=== PATIENT | female | born 1990 | race African-American/Black ===

== ENCOUNTER 2019-11-04 09:50 | Inpatient (IN) | payer OTHER ==
[2019-11-04] MEDS ORDERED: ONDANSETRON 4 MG/2 ML INJ IV PRN (11:00)
[2019-11-04] MEDS ORDERED: fentaNYL 100 MCG/2 ML INJ IV PRN (11:00)
[2019-11-04] MEDS ORDERED: MINERAL OIL 30 ML ORAL LIQD PO PRN (11:00)
[2019-11-04] MEDS ORDERED: OXYTOCIN 20 UNIT/1000ML DRIP 20 UNITS/1,000 ML BAG IV SCH (11:00)
[2019-11-04] MEDS ORDERED: TERBUTALINE 1 MG/1 ML INJ SUB-Q PRN (11:00)
[2019-11-04] MEDS ORDERED: AMPICILLIN/NS 2 GM/100 ML 2 GM/100 ML BAG IV ONE (11:00)
[2019-11-04] MEDS ORDERED: ePHEDrine SULFATE 50 MG/1 ML INJ IV PRN (11:00)
[2019-11-04] MEDS ORDERED: ACETAMINOPHEN 325 MG TAB PO PRN (11:00)
[2019-11-04] MEDS ORDERED: LIDOCAINE (2%) 20 MG/1 ML VIAL 20 ML MDV INFILTRATI ONE (11:00)
[2019-11-04] MEDS ORDERED: BUTORPHANOL 2 MG/1 ML INJ IV PRN (11:00)
--- NOTE | 2019-11-04 11:21 | History and Physical Report ---
History of Present Illness Date of examination: 11/04/19 Chief complaint: Pt denies complaints History of present illness: 29 y/o presents to [facility] L&D from [facility] for an IOL r/t to recent arrhythmia and pericardial effusion. Pt initiated her pnc at [facility] @ 9 1/7 wks and has been co managed by [facility] for diet controlled GDM. Pt's fsbs have been well controlled and wnl. Medical hx includes, a low TSH, vit D def, + GBS, and a hx of ASCUS + HPV with colpo. Pt was admitted to L&D for induction and a NICU consult was made. Past History Past Medical History: other (low TSH, Vit D def.) Past Surgical History: no surgical history MED DIR History: abnormal PAP smear Family/Genetic History: hypertension Social history: no significant social history - Obstetrical History Expected Date of Delivery: 11/18/19 Actual Gestation: 38 Week(s) 0 Day(s) : 1 Para: 0 Hx # Term Pregnancies: 0 Number of Pregnancies: 0 Spontaneous Abortions: 0 Induced : 0 Number of Living Children: 0 Medications and Allergies Allergies Allergy/AdvReac Type Severity Reaction Status Date / Time No Known Allergies Allergy Unverified 11/04/19 11:07 Review of Systems All systems: negative Breasts: normal Genitourinary: normal appearance Rectal Exam: deferred - Vital Signs Vital signs: Vital Signs Pulse BP 93 H 123/83 11/04/19 10:58 11/04/19 10:58 Temp Pulse Resp BP Pulse Ox 92 H 123/83 96 11/04/19 11:06 11/04/19 10:58 11/04/19 11:06 - Physical Exam Breasts: Positive: normal Cardiovascular: Regular rate Lungs: Positive: Clear to auscultation Abdomen: Positive: normal appearance, soft, normal bowel sounds, other (gravid) Genitourinary (Female): Positive: normal external genitalia, normal perenium Vulva: both: normal Vagina: Positive: normal moisture Uterus: Positive: normal size, normal contour, other (gravid) Adnexa: both: normal Anus/Rectum: Positive: normal perianal skin Extremities: Positive: normal - Obstetrical FHR: auscultation normal, category 1 FHR comments: FHT 142 with pos accels and no decels Uterine Contraction Monitor Mode: External Cervical Dilatation: 1 Cervical Effacement Percentage: 70 station: -3 Uterine Contraction Frequency (min): irreg Uterine Contraction Pattern: Irregular Uterine Tone Measurement Phase: Resting Uterine Contraction Intensity: Mild Results Result Diagrams: 11/04/19 13:08 11/04/19 13:08 All other labs normal. Assessment and Plan A: IUP@ 38 wks + GBS, GDM, GHTN arrhythmia and pericardial effusion P: Admit to L&D for Cervidil induction GBS prophylaxis PIH labs Consult NICU Monitor fsbs per [facility] L&D protocal Expectant mtg - Patient Problems (1) Term Current Visit: Yes Status: Acute (2) GDM (gestational diabetes mellitus) Current Visit: Yes Status: Acute (3) Gestational HTN Current Visit: Yes Status: Acute (4) GBS (group B Streptococcus carrier), +RV culture, currently Current Visit: Yes Status: Acute (5) Low TSH level Current Visit: Yes Status: Acute (6) arrhythmia affecting , antepartum Current Visit: Yes Status: Acute (7) pericardial effusion affecting management of mother Current Visit: Yes Status: Acute
[2019-11-04] MEDS ORDERED: DINOPROSTONE 10 MG VAG SUPP VG ONE (12:18)
[2019-11-04 13:29] LABS: Hematocrit 38.9 % (30.3-42.9); Hemoglobin 13.3 gm/dl (10.1-14.3); Mean Corpuscular HGB Conc 34 % (30-34); Mean Corpuscular Volume 93 fl (79-97); Platelet Count 195 K/mm3 (140-440); Red Blood Count 4.21 M/mm3 (3.65-5.03)
[2019-11-04 13:49] LABS: Alanine Aminotransferase 12 units/L (7-56); Uric Acid 3.8 mg/dL (3.5-7.6)
[2019-11-05] MEDS ORDERED: miSOPROStol 25 MCG TAB PO PRN (04:12)
[2019-11-05] MEDS: OXYTOCIN DRIP 30 UNITS/500 ML BAG IV SCH ×8 (05:59→17:16)
[2019-11-05] MEDS: LACTATED RINGERS 1,000 ML IV SCH ×3 (05:59→21:47)
[2019-11-05] MEDS ORDERED: NON-FORMULARY EACH (Prenatal One Daily Tablet 1 TAB) PO SCH (10:00)
[2019-11-05] MEDS ORDERED: PRENATAL VIT27-FE FUMARATE-FOLIC ACID VIT TAB PO SCH (10:00)
[2019-11-05 12:24] LABS: Bilirubin,Urine NEG (Negative); Blood,Urine LG (Negative); Color,Urine Straw (Yellow); Mucus,Urine FEW /HPF; Protein,Urine <15 mg/dL mg/dL (Negative); Urobilinogen,Urine < 2.0 mg/dL (<2.0)
--- NOTE | 2019-11-05 12:40 | Progress Note ---
Assessment and Plan - Patient Problems (1) Encounter for induction of labor Current Visit: Yes Status: Acute Plan to address problem: Continue Pitocin titration as ordered Pain meds as ordered Anticipate (2) arrhythmia affecting , antepartum Current Visit: Yes Status: Acute (3) pericardial effusion affecting management of mother Current Visit: Yes Status: Acute (4) GBS (group B Streptococcus carrier), +RV culture, currently Current Visit: Yes Status: Acute (5) GDM (gestational diabetes mellitus) Current Visit: Yes Status: Acute Subjective - Subjective Date of service: 11/05/19 Principal diagnosis: IOL Interval history: See admission H & P Patient reports: movement normal, contractions, no loss of fluid, no vaginal bleeding Objective - Vital Signs Vital Signs: Vital Signs - 12hr 11/05/19 11/05/19 11/05/19 01:19 02:19 04:44 Temperature Pulse Rate 75 73 94 H Respiratory Rate Blood Pressure 107/68 108/71 120/66 Blood Pressure [Right] 11/05/19 11/05/19 11/05/19 05:19 06:19 07:20 Temperature Pulse Rate 94 H 91 H 83 Respiratory Rate Blood Pressure 113/71 97/53 94/51 Blood Pressure [Right] 11/05/19 11/05/19 11/05/19 08:19 09:19 09:29 Temperature 98.0 F Pulse Rate 80 93 H 88 Respiratory 18 Rate Blood Pressure 110/75 108/64 Blood Pressure 103/63 [Right] 11/05/19 11/05/19 11/05/19 09:30 09:58 10:19 Temperature Pulse Rate 88 86 80 Respiratory Rate Blood Pressure 103/63 110/66 114/70 Blood Pressure [Right] 11/05/19 11/05/19 11/05/19 11:19 11:59 12:19 Temperature 98.1 F Pulse Rate 81 86 82 Respiratory 18 Rate Blood Pressure 115/75 103/64 88/51 Blood Pressure 103/54 [Right] - Exam Breasts: deferred Cardiovascular: Regular rate Lungs: Normal air movement Abdomen: Present: other (gravid) FHR: category 1 Uterine Contraction Monitor Mode: External Cervical Dilatation: 2 (vertex) Cervical Effacement Percentage: 70 (Pitocin @ 6mu/min) station: -2 Uterine Contraction Frequency (min): 2-5 Uterine Contraction Pattern: Irregular Uterine Tone Measurement Phase: Resting Uterine Contraction Intensity: Mild Extremities: normal - Labs Labs: Abnormal Labs 11/04/19 13:08 Creatinine 0.4 L Lactate Dehydrogenase 220 H Laboratory Results - last 24 hr 11/04/19 11/04/19 11/04/19 12:13 13:00 13:08 WBC 9.1 RBC 4.21 Hgb 13.3 Hct 38.9 MCV 93 MCH 32 MCHC 34 RDW 14.0 Plt Count 195 Creatinine Estimated GFR Uric Acid AST ALT Lactate Dehydrogenase TSH Urine Color Straw Urine Turbidity Clear Urine pH 6.0 Ur Specific [place] 1.006 Urine Protein <15 mg/dl Urine Glucose (UA) Neg Urine Ketones Neg Urine Blood Lg Urine Nitrite Neg Urine Bilirubin Neg Urine Urobilinogen < 2.0 Ur Leukocyte Esterase Tr Urine WBC (Auto) 3.0 Urine RBC (Auto) 1.0 U Epithel Cells (Auto) 1.0 Urine Mucus Few Blood Type O POSITIVE Antibody Screen Negative 11/04/19 11/04/19 13:08 13:08 WBC RBC Hgb Hct MCV MCH MCHC RDW Plt Count Creatinine 0.4 L Estimated GFR > 60 Uric Acid 3.8 AST 20 ALT 12 Lactate Dehydrogenase 220 H TSH 1.780 Urine Color Urine Turbidity Urine pH Ur Specific [place] Urine Protein Urine Glucose (UA) Urine Ketones Urine Blood Urine Nitrite Urine Bilirubin Urine Urobilinogen Ur Leukocyte Esterase Urine WBC (Auto) Urine RBC (Auto) U Epithel Cells (Auto) Urine Mucus Blood Type Antibody Screen
[2019-11-05] MEDS ORDERED: AMPICILLIN/NS 2 GM/100 ML 2 GM/100 ML BAG IV ONE (18:28)
[2019-11-05] MEDS: BUTORPHANOL 2 MG/1 ML INJ IV PRN (18:31)
--- NOTE | 2019-11-05 21:41 | Event Note ---
Date: 11/05/19 Patient is having labor induced. SVE /-3/. Having mild irregular contractions. Plan low dose Pitocin tonight for cervical ripening. No lesions noted on careful exam with bright light.
[2019-11-06] MEDS: BUTORPHANOL 2 MG/1 ML INJ IV PRN (05:06)
[2019-11-06] MEDS: LACTATED RINGERS 1,000 ML IV SCH ×2 (05:11→15:31)
--- NOTE | 2019-11-06 09:18 | Progress Note ---
Assessment and Plan A: at 38 weeks, 2 days gestation. Induction of labor for GDM, arrhythmia, and pericardial effusion. GBS positive. P: Continue IOL and GBS prophylaxis. Subjective - Subjective Date of service: 11/06/19 Principal diagnosis: IOL at 38 weeks 2 days gestation; GDM Interval history: Patient received low dose Pitocin overnight for cervical ripening. Patient reports contractions are becoming stronger and more regular. Denies LOF or VB. Patient reports: movement normal, contractions, no loss of fluid, no vaginal bleeding Objective - Vital Signs Vital Signs: Vital Signs - 12hr 11/05/19 11/05/19 11/05/19 21:19 21:45 21:50 Pulse Rate 76 90 79 Blood Pressure 104/63 O2 Sat by Pulse 99 99 Oximetry 11/05/19 11/05/19 11/05/19 21:55 22:00 22:05 Pulse Rate 82 89 83 Blood Pressure O2 Sat by Pulse 100 99 99 Oximetry 11/05/19 11/05/19 11/05/19 22:10 22:15 22:19 Pulse Rate 82 80 79 Blood Pressure 110/66 O2 Sat by Pulse 98 99 Oximetry 11/05/19 11/05/19 11/05/19 22:20 22:25 22:30 Pulse Rate 82 94 H 86 Blood Pressure O2 Sat by Pulse 99 99 100 Oximetry 11/05/19 11/05/19 11/05/19 22:35 22:40 22:45 Pulse Rate 83 82 80 Blood Pressure O2 Sat by Pulse 99 98 99 Oximetry 11/05/19 11/05/19 11/05/19 22:50 22:55 23:00 Pulse Rate 84 83 84 Blood Pressure O2 Sat by Pulse 99 98 98 Oximetry 11/05/19 11/05/19 11/05/19 23:05 23:10 23:19 Pulse Rate 87 82 94 H Blood Pressure 110/56 O2 Sat by Pulse 98 99 97 Oximetry 11/05/19 11/05/19 11/05/19 23:24 23:29 23:34 Pulse Rate 97 H 77 82 Blood Pressure O2 Sat by Pulse 99 99 98 Oximetry 11/05/19 11/05/19 11/05/19 23:39 23:44 23:49 Pulse Rate 89 81 82 Blood Pressure O2 Sat by Pulse 99 98 98 Oximetry 11/05/19 11/05/19 11/06/19 23:54 23:59 00:04 Pulse Rate 79 79 82 Blood Pressure O2 Sat by Pulse 98 98 98 Oximetry 11/06/19 11/06/19 11/06/19 00:09 00:14 00:19 Pulse Rate 74 77 79 Blood Pressure 99/54 O2 Sat by Pulse 98 98 98 Oximetry 11/06/19 11/06/19 11/06/19 00:24 00:29 00:34 Pulse Rate 79 77 80 Blood Pressure O2 Sat by Pulse 98 98 98 Oximetry 11/06/19 11/06/19 11/06/19 00:39 00:44 00:49 Pulse Rate 85 80 73 Blood Pressure O2 Sat by Pulse 99 98 98 Oximetry 11/06/19 11/06/19 11/06/19 00:54 00:59 01:04 Pulse Rate 75 85 75 Blood Pressure O2 Sat by Pulse 98 99 98 Oximetry 11/06/19 11/06/19 11/06/19 01:09 01:14 01:19 Pulse Rate 79 73 75 Blood Pressure 102/58 O2 Sat by Pulse 98 99 99 Oximetry 11/06/19 11/06/19 11/06/19 01:24 01:29 01:34 Pulse Rate 79 77 82 Blood Pressure O2 Sat by Pulse 99 98 98 Oximetry 11/06/19 11/06/19 11/06/19 01:39 01:44 01:49 Pulse Rate 98 H 77 87 Blood Pressure O2 Sat by Pulse 98 98 99 Oximetry 11/06/19 11/06/19 11/06/19 01:54 01:59 02:04 Pulse Rate 77 73 71 Blood Pressure O2 Sat by Pulse 98 98 98 Oximetry 11/06/19 11/06/19 11/06/19 02:09 02:14 02:19 Pulse Rate 74 89 73 Blood Pressure 100/50 O2 Sat by Pulse 99 100 99 Oximetry 11/06/19 11/06/19 11/06/19 02:24 02:29 02:34 Pulse Rate 79 79 75 Blood Pressure O2 Sat by Pulse 98 98 98 Oximetry 11/06/19 11/06/19 11/06/19 02:39 02:45 02:50 Pulse Rate 81 98 H 83 Blood Pressure O2 Sat by Pulse 99 99 100 Oximetry 11/06/19 11/06/19 11/06/19 02:55 03:00 03:05 Pulse Rate 90 76 86 Blood Pressure O2 Sat by Pulse 100 99 100 Oximetry 11/06/19 11/06/19 11/06/19 03:10 03:15 03:19 Pulse Rate 72 76 74 Blood Pressure 98/56 O2 Sat by Pulse 99 98 Oximetry 11/06/19 11/06/19 11/06/19 03:20 03:25 03:30 Pulse Rate 77 75 89 Blood Pressure O2 Sat by Pulse 99 98 99 Oximetry 11/06/19 11/06/19 11/06/19 03:35 03:40 03:45 Pulse Rate 77 78 78 Blood Pressure O2 Sat by Pulse 98 99 98 Oximetry 11/06/19 11/06/19 11/06/19 03:50 03:55 04:00 Pulse Rate 82 89 85 Blood Pressure O2 Sat by Pulse 98 99 99 Oximetry 11/06/19 11/06/19 11/06/19 04:05 04:10 04:15 Pulse Rate 76 90 75 Blood Pressure O2 Sat by Pulse 98 99 99 Oximetry 11/06/19 11/06/19 11/06/19 04:19 04:20 04:25 Pulse Rate 78 84 83 Blood Pressure 99/54 O2 Sat by Pulse 98 98 Oximetry 11/06/19 11/06/19 11/06/19 04:30 04:40 04:45 Pulse Rate 88 89 92 H Blood Pressure O2 Sat by Pulse 99 100 98 Oximetry 11/06/19 11/06/19 11/06/19 04:50 04:55 05:00 Pulse Rate 83 83 83 Blood Pressure O2 Sat by Pulse 98 99 98 Oximetry 11/06/19 11/06/19 11/06/19 05:05 05:10 05:15 Pulse Rate 86 80 118 H Blood Pressure O2 Sat by Pulse 99 99 100 Oximetry 11/06/19 11/06/19 11/06/19 05:19 05:20 05:25 Pulse Rate 74 84 83 Blood Pressure 123/66 O2 Sat by Pulse 98 97 Oximetry 11/06/19 11/06/19 11/06/19 05:30 05:35 05:40 Pulse Rate 83 76 81 Blood Pressure O2 Sat by Pulse 98 98 98 Oximetry 11/06/19 11/06/19 11/06/19 05:45 05:50 05:55 Pulse Rate 84 81 79 Blood Pressure O2 Sat by Pulse 98 98 97 Oximetry 11/06/19 11/06/19 11/06/19 06:00 06:05 06:10 Pulse Rate 79 78 78 Blood Pressure O2 Sat by Pulse 98 97 98 Oximetry 11/06/19 11/06/19 11/06/19 06:15 06:19 06:20 Pulse Rate 79 74 77 Blood Pressure 118/64 O2 Sat by Pulse 98 98 Oximetry 11/06/19 11/06/19 11/06/19 06:25 06:30 06:35 Pulse Rate 82 78 77 Blood Pressure O2 Sat by Pulse 99 98 98 Oximetry 11/06/19 11/06/19 11/06/19 06:40 06:45 06:50 Pulse Rate 79 78 77 Blood Pressure O2 Sat by Pulse 98 98 98 Oximetry 11/06/19 11/06/19 11/06/19 06:55 07:07 07:12 Pulse Rate 81 95 H 75 Blood Pressure O2 Sat by Pulse 98 99 98 Oximetry 11/06/19 11/06/19 11/06/19 07:17 07:19 07:22 Pulse Rate 72 72 83 Blood Pressure 105/65 O2 Sat by Pulse 98 99 Oximetry 11/06/19 11/06/19 11/06/19 07:27 07:32 07:37 Pulse Rate 77 80 76 Blood Pressure O2 Sat by Pulse 98 98 98 Oximetry 11/06/19 11/06/19 11/06/19 07:42 07:47 07:52 Pulse Rate 76 73 89 Blood Pressure O2 Sat by Pulse 99 99 99 Oximetry 11/06/19 11/06/19 11/06/19 07:57 08:02 08:07 Pulse Rate 74 83 78 Blood Pressure O2 Sat by Pulse 98 99 99 Oximetry 11/06/19 11/06/19 11/06/19 08:12 08:17 08:21 Pulse Rate 82 75 80 Blood Pressure 128/82 O2 Sat by Pulse 98 99 Oximetry 11/06/19 11/06/19 11/06/19 08:22 08:27 08:32 Pulse Rate 77 80 83 Blood Pressure O2 Sat by Pulse 98 100 99 Oximetry 11/06/19 11/06/19 11/06/19 08:37 08:42 08:47 Pulse Rate 79 94 H 77 Blood Pressure O2 Sat by Pulse 99 100 100 Oximetry 11/06/19 11/06/19 11/06/19 08:52 08:57 09:05 Pulse Rate 77 93 H 82 Blood Pressure O2 Sat by Pulse 100 100 100 Oximetry 11/06/19 09:10 Pulse Rate 83 Blood Pressure O2 Sat by Pulse 100 Oximetry - Exam Abdomen: Present: normal appearance, soft. Absent: distention, tenderness, guarding, rigidity Uterus: Present: normal, fundal height above umbilicus FHR: category 1 Uterine Contraction Monitor Mode: External Cervical Dilatation: 4 Cervical Effacement Percentage: 100 station: 0 Uterine Contraction Pattern: Regular Uterine Contraction Intensity: Moderate Extremities: normal - Labs Labs: Abnormal Labs 11/04/19 11/05/19 11/06/19 13:08 19:10 03:07 Creatinine 0.4 L POC Glucose 69 L 68 L Lactate Dehydrogenase 220 H Laboratory Results - last 24 hr 11/04/19 11/05/19 11/05/19 12:13 09:55 13:32 POC Glucose 83 Urine Color Straw Urine Turbidity Clear Urine pH 6.0 Ur Specific [place] 1.006 Urine Protein <15 mg/dl Urine Glucose (UA) Neg Urine Ketones Neg Urine Blood Lg Urine Nitrite Neg Urine Bilirubin Neg Urine Urobilinogen < 2.0 Ur Leukocyte Esterase Tr Urine WBC (Auto) 3.0 Urine RBC (Auto) 1.0 U Epithel Cells (Auto) 1.0 Urine Mucus Few Coronavirus (PCR) Negative 11/05/19 11/06/19 19:10 03:07 POC Glucose 69 L 68 L Urine Color Urine Turbidity Urine pH Ur Specific [place] Urine Protein Urine Glucose (UA) Urine Ketones Urine Blood Urine Nitrite Urine Bilirubin Urine Urobilinogen Ur Leukocyte Esterase Urine WBC (Auto) Urine RBC (Auto) U Epithel Cells (Auto) Urine Mucus Coronavirus (PCR)
[2019-11-06] MEDS ORDERED: NALOXONE 2 MG/2 ML INJ IV PRN (11:38)
[2019-11-06] MEDS ORDERED: ePHEDrine SULFATE 50 MG/1 ML INJ IV PRN (11:38)
--- NOTE | 2019-11-06 11:38 | Anesthesia Consultation ---
Anesthesia Consult and Med Hx Date of service: 11/06/19 - Airway Anesthetic Teeth Evaluation: Good ROM Head & Neck: Adequate Mental/Hyoid Distance: Adequate Mallampati Class: Class II Intubation Access Assessment: Probably Good - Pulmonary Exam CTA: Yes - Cardiac Exam Cardiac Exam: RRR - Pre-Operative Health Status ASA Pre-Surgery Classification: ASA3 Proposed Anesthetic Plan: Epidural - Pulmonary Hx Asthma: No COPD: No Hx Pneumonia: No - Cardiovascular System Hx Hypertension: No - Central Nervous System Hx Seizures: No Hx Psychiatric Problems: No - Endocrine Hx Renal Disease: No Hx End Stage Renal Disease: No Hx Non-Insulin Dependent Diabetes: Yes Hx Hypothyroidism: Yes Hx Hyperthyroidism: No - Hematic Hx Anemia: No Hx Sickle Cell Disease: No - Other Systems Hx Alcohol Use: No
[2019-11-06] MEDS ORDERED: DEXMEDETOMIDINE 200 MCG/2 ML VIAL IV ONE (11:43)
[2019-11-06] MEDS ORDERED: fentaNYL-BUPIV 2 MCG/ML-0.125% 200 MCG/100 ML BAG EPIDURAL SCH (12:00)
--- NOTE | 2019-11-06 12:11 | Progress Note ---
Labor Epidural - Labor Epidural Start Time: 11:42 Stop Time: 12:04 Performed by:: LE IZAGUIRRE Procedure: Patient is requesting epidural for labor pain. H&P, and labs reviewed. Procedure explained, questions answered, consent obtained. Patient in sitting position with blood pressure cuff and pulse ox on and working. Timeout performed immediately before start of procedure. Sterile betadine prep/drape. 3 mL 1% lidocaine skin wheal at L[3]-L[4]. 18-gauge Touhy epidural needle advanced to [id number] with saline at [7] cm. Epidural dexmedetomidine [30] mcg administered. Epidural catheter advanced to [12] cm, negative aspiration for blood and csf, negative test dose 3 ml 1.5% lidocaine with epinephrine. Sterile steri-strips and tegaderm applied, followed by tape reinforcement. Patient tolerated procedure well. Day SRNA
[2019-11-06] MEDS: AMPICILLIN/NS 1 GM/50 ML 1 GM/50 ML BAG IV SCH ×2 (13:00→17:33)
[2019-11-06] MEDS ORDERED: LIDOCAINE (2%) 20 MG/1 ML VIAL 20 ML MDV INFILTRATI ONE (16:33)
[2019-11-06] MEDS ORDERED: WITCH HAZEL/ GLYCERIN PAD TP PRN (21:02)
[2019-11-06] MEDS ORDERED: MAGNESIUM HYDROXIDE (MOM) ORAL LIQD UDC PO PRN (21:02)
[2019-11-06] MEDS ORDERED: LANOLIN/ZINC/DIMETHICONE (LANSINOH) 7 GM TP PRN (21:02)
[2019-11-06] MEDS ORDERED: HYDROcodone/ACETAMINOPHEN 5-325 MG TAB PO PRN (21:02)
--- NOTE | 2019-11-06 21:07 | Procedure Note ---
OB Delivery Note - Delivery Date of Delivery: 11/06/19 Surgeon: ISABELA SINGLETON Estimated blood loss: other (350 cc) - Vaginal Delivery presentation: vertex Delivery position: OA Intrapartum events: none Delivery induction: AROM Delivery monitor: external FHT, external uterine Route of delivery: Delivery placenta: spontaneous Delivery cord: 3 umbilical vessels Episiotomy: none Delivery laceration: other (partial 3rd degree laceration) Delivery repair: vicryl Anesthesia: epidural Delivery comments: Spontaneous vaginal delivery at 18:46 of liveborn female infant weighing 6 lb. 2.5 oz. over partial 3rd degree perineal laceration with apgars of 8/9. Baby placed skin to skin with mom immediately after delivery. Spontaneous cry and respirations. 3 vessel cord double clamped and cut. Cord blood obtained. Spontaneous delivery of intact placenta and membranes by mata mechanism at 18:48. EBL 350 cc. Pitocin to IV fluids after delivery of placenta. Fundus firm and midline. Dr. Morales called to repair partial 3rd degree laceration. Dr. Morales repaired sphincter capsule with 3-0 vicryl; remainder of perineal laceration repaired with 2-0 and 3-0 vicryl by Isabela Singleton CNM. No other lacerations noted. Vaginal sweep negative. Sponge count and instrument count correct.
[2019-11-06] MEDS: IBUPROFEN 600 MG TAB PO SCH (21:42)
[2019-11-06] MEDS: DOCUSATE SODIUM 100 MG CAP PO SCH (23:51)
[2019-11-06] MEDS: FERROUS SULFATE 325 MG TAB PO SCH (23:51)
[2019-11-07 01:46] LABS: Hematocrit 31.9 % (30.3-42.9); Hemoglobin 10.9 gm/dl (10.1-14.3)
[2019-11-07] MEDS: IBUPROFEN 600 MG TAB PO SCH ×2 (05:31→22:02)
[2019-11-07] MEDS: FERROUS SULFATE 325 MG TAB PO SCH ×2 (09:46→22:02)
[2019-11-07] MEDS: DOCUSATE SODIUM 100 MG CAP PO SCH ×2 (09:46→22:02)
--- NOTE | 2019-11-07 11:06 | Progress Note ---
Assessment and Plan A: day 1 S/P . Anemia. Heart murmur. P: Continue oral iron supplementation. Cardiology consult. Subjective - Subjective Date of service: 11/07/19 Principal diagnosis: day 1 S/P Patient reports: appetite normal, voiding normally, pain well controlled, flatus, ambulating normally, no dizzy ambulation, no nauseated [employer]: doing well, bottle feeding Objective - Vital Signs Latest vital signs: Vital Signs Temp Pulse Resp BP BP Pulse Ox 11/07/19 07:27 97.8 F 20 96/59 11/07/19 06:02 97.9 F 88 14 101/57 98 11/07/19 01:13 98.6 F 89 18 109/76 98 11/06/19 23:24 99.3 F 90 18 110/75 11/06/19 21:42 103 H 100 11/06/19 21:37 89 100 11/06/19 21:32 96 H 100 11/06/19 21:30 98.9 F 89 16 133/82 98 11/06/19 21:27 98 H 100 11/06/19 21:22 106 H 100 11/06/19 21:17 99 H 99 11/06/19 21:15 90 18 126/80 100 11/06/19 21:12 108 H 100 11/06/19 21:07 109 H 100 11/06/19 21:02 98 H 99 11/06/19 21:00 98 H 18 130/80 98 11/06/19 20:57 98 H 100 11/06/19 20:52 91 H 100 11/06/19 20:48 90 129/79 11/06/19 20:47 90 100 11/06/19 20:45 90 16 129/79 98 11/06/19 20:42 91 H 100 11/06/19 20:37 91 H 100 11/06/19 20:33 82 134/83 11/06/19 20:32 92 H 124/77 100 11/06/19 20:30 98.7 F 91 H 18 134/83 100 11/06/19 20:27 91 H 99 11/06/19 20:22 88 100 11/06/19 20:18 83 136/81 11/06/19 20:17 87 100 11/06/19 20:03 81 145/87 11/06/19 19:48 81 139/82 11/06/19 19:45 18 11/06/19 19:33 78 136/76 11/06/19 19:18 82 136/71 11/06/19 19:04 88 136/73 11/06/19 19:00 98.8 F 11/06/19 18:49 130 H 129/78 11/06/19 18:20 113 H 100 11/06/19 18:19 107 H 127/77 11/06/19 18:15 99 H 99 11/06/19 18:10 106 H 100 11/06/19 18:05 101 H 99 11/06/19 18:00 98 H 100 11/06/19 17:55 100 H 100 11/06/19 17:50 96 H 100 11/06/19 17:49 102 H 117/77 11/06/19 17:45 96 H 100 11/06/19 17:40 103 H 100 11/06/19 17:35 96 H 100 11/06/19 17:18 105 H 116/76 11/06/19 16:48 129 H 125/84 11/06/19 16:39 118 H 100 11/06/19 16:34 112 H 100 11/06/19 16:29 86 100 11/06/19 16:24 83 100 11/06/19 16:19 108 H 100 11/06/19 16:18 95 H 117/64 11/06/19 16:14 87 100 11/06/19 16:09 81 100 11/06/19 16:04 75 100 11/06/19 15:59 76 100 11/06/19 15:54 74 100 11/06/19 15:49 76 108/62 100 11/06/19 15:44 76 100 11/06/19 15:39 74 100 11/06/19 15:34 76 100 11/06/19 15:29 74 100 11/06/19 15:24 78 100 11/06/19 15:19 75 100 11/06/19 15:18 77 110/67 11/06/19 15:14 72 99 11/06/19 15:09 75 100 11/06/19 15:04 73 100 11/06/19 14:59 87 99 11/06/19 14:56 94 H 93 11/06/19 14:54 88 100 11/06/19 14:49 75 100 11/06/19 14:48 81 113/71 11/06/19 14:44 73 100 11/06/19 14:39 81 99 11/06/19 14:34 75 100 11/06/19 14:29 70 100 11/06/19 14:24 87 100 11/06/19 14:19 78 100 11/06/19 14:18 77 104/59 11/06/19 14:14 75 99 11/06/19 14:09 71 99 11/06/19 14:04 76 99 11/06/19 14:00 98.2 F 14 11/06/19 13:59 71 99 11/06/19 13:54 72 99 11/06/19 13:49 68 121/69 100 11/06/19 13:44 71 100 11/06/19 13:39 74 99 11/06/19 13:34 78 99 11/06/19 13:29 71 99 11/06/19 13:24 72 98 11/06/19 13:19 71 99 11/06/19 13:18 71 118/72 11/06/19 13:14 77 99 11/06/19 13:09 73 98 11/06/19 13:04 78 99 11/06/19 12:59 77 99 11/06/19 12:54 71 98 11/06/19 12:49 72 99 11/06/19 12:48 74 126/76 11/06/19 12:44 77 98 11/06/19 12:39 79 98 11/06/19 12:34 76 98 11/06/19 12:29 79 99 11/06/19 12:24 87 99 11/06/19 12:19 85 100 11/06/19 12:18 79 115/57 11/06/19 12:15 86 143/65 11/06/19 12:14 76 137/61 99 11/06/19 12:12 83 116/62 11/06/19 12:10 78 135/77 11/06/19 12:09 81 100 11/06/19 12:08 100 H 118/66 11/06/19 12:05 82 127/75 11/06/19 12:04 94 H 100 11/06/19 12:03 90 133/78 11/06/19 12:01 97 H 130/77 11/06/19 11:59 88 131/77 100 11/06/19 11:57 95 H 130/76 11/06/19 11:55 97 H 140/79 11/06/19 11:54 84 100 11/06/19 11:53 95 H 124/74 11/06/19 11:51 90 129/72 11/06/19 11:49 98 H 140/75 100 11/06/19 11:44 109 H 100 11/06/19 11:39 96 H 99 11/06/19 11:34 79 99 11/06/19 11:29 84 99 11/06/19 11:28 81 124/80 11/06/19 11:24 88 99 11/06/19 11:15 89 99 11/06/19 11:10 86 100 11/06/19 11:05 84 99 Intake and Output 11/06/19 11/07/19 11/07/19 23:59 07:59 15:59 Intake Total 360 Output Total 1250 400 500 Balance -1250 -40 -500 Intake: Intake, Free Water 360 Output: Urine 1250 400 500 Indwelling Catheter 800 500 Void 450 400 Other: Total, Output Amount 450 400 500 # Voids Indwelling Catheter 1 Void 1 Estimated Blood Loss 250 - Exam Cardiovascular: Present: Regular rate, Other (Murmur heard) Lungs: Present: Clear to auscultation Abdomen: Present: normal appearance, soft. Absent: distention, tenderness, guarding, rigidity Uterus: Present: normal, firm, fundal height below umbilicus. Absent: bogginess, tenderness Extremities: Present: normal. Absent: tenderness, edema
[2019-11-07 12:41] LABS: Hematocrit 34.7 % (30.3-42.9)
--- NOTE | 2019-11-08 04:49 | Post Anesthesia Evaluation ---
- Post Anesthesia Evaluation Patient Participated: Yes Airway Patent: Yes Stable Respiratory Function: Yes Nausea/Vomiting: No Temp > 96.8F: Yes Pain Manageable: Yes Adequeate Hydration: Yes Anesthesia Complications: No Block Receding Appropriately: Yes
[2019-11-08] MEDS: IBUPROFEN 600 MG TAB PO SCH ×2 (05:16→19:03)
--- NOTE | 2019-11-08 11:58 | Progress Note ---
Assessment and Plan A: PP Day #2 GDM A1 (stable) Heart Murmur P: Follow Routine Orders Continue Accuchecks Cardiology Consult Pending Subjective - Subjective Date of service: 11/08/19 Principal diagnosis: day 1 S/P Patient reports: appetite normal, voiding normally, pain well controlled, flatus, bowel movement, ambulating normally [place]: doing well, bottle feeding Objective - Vital Signs Latest vital signs: Vital Signs Temp Pulse Resp BP BP Pulse Ox 11/08/19 08:08 97.6 F 84 20 118/73 97 11/08/19 00:53 97.9 F 86 18 109/59 99 11/07/19 16:40 97.9 F 70 18 102/60 97 11/07/19 13:07 98.1 F 93 H 20 117/62 97 Intake and Output 11/07/19 11/08/19 11/08/19 22:59 06:59 14:59 Intake Total 360 240 Output Total 600 Balance -600 360 240 Intake: Oral 240 Intake, Free Water 360 Output: Urine 600 Indwelling Catheter 600 Other: Total, Intake Amount 240 Total, Output Amount 600 # Voids Indwelling Catheter 1 Void 2 1 - Exam Breasts: Present: normal Cardiovascular: Present: Regular rate Lungs: Present: Clear to auscultation, Normal air movement Abdomen: Present: normal appearance, soft, normal bowel sounds Uterus: Present: normal, firm, fundal height below umbilicus Extremities: Present: normal
--- NOTE | 2019-11-08 14:29 | Consultation ---
History of Present Illness Consult date: 11/08/19 Requesting physician: DEIDRE SILVESTRE Consult reason: other (heart murmur) History of present illness: The pt is a 29 YO female with a past medical history of gestational DM, s/p vaginal delivery of full term on 11/06/2019. She is previously unknown to our practice. She presented for induction of labor and subsequently delivered. Cardiology has been consulted for heart murmur. Past History Past Medical History: other (as per HPI) Social history: no significant social history Medications and Allergies Allergies Allergy/AdvReac Type Severity Reaction Status Date / Time No Known Allergies Allergy Unverified 11/04/19 11:07 Home Medications Medication Instructions Recorded Confirmed Last Taken Type One Daily Tablet 1 tab PO DAILY 11/04/19 11/04/19 11/04/19 07:00 History 1 Active Meds: Active Medications Acetaminophen/Hydrocodone Bitart ([place] 5/325) 2 each PO Q6H PRN PRN Reason: Pain, Moderate (4-6) Docusate Sodium (Colace) 100 mg PO BID [facility] Last Admin: 11/07/19 22:02 Dose: 100 mg Documented by: Ferrous Sulfate (Feosol) 325 mg PO BID [facility] Last Admin: 11/07/19 22:02 Dose: 325 mg Documented by: Ibuprofen (Ibuprofen) 600 mg PO Q6HR [facility] Last Admin: 11/08/19 05:16 Dose: 600 mg Documented by: Magnesium Hydroxide (Milk Of Magnesia) 30 ml PO HS PRN PRN Reason: Constipation Multi-Ingredient Ointment (Lansinoh) 1 applic TP PRN PRN PRN Reason: Sore Nipples Sodium Chloride (Sodium Chloride Flush Syringe 10 Ml) 10 ml IV PRN PRN PRN Reason: LINE FLUSH Witch Brinda/Glycerin (Tucks Pad) 1 each TP PRN PRN PRN Reason: Hemorrhoid/cleansing/soothing Last Admin: 11/07/19 15:03 Dose: 1 each Documented by: Review of Systems All systems: negative (as per HPI) Physical Examination Vital Signs Pulse BP 93 H 123/83 11/04/19 10:58 11/04/19 10:58 Narrative exam: agree with physical examination per [facility] team Results 11/07/19 12:12 11/04/19 13:08 - Imaging and Cardiology Echo: report reviewed Assessment and Plan Cardiology has been consulted for heart murmur. tte reviewed - EF 50-55%, no significant abnormalities. Currently stable cardiac status. Pt may discharge from cardiology standpoint. Recommend pt follow up in our office with Dr. Blank within 2 weeks of discharge ([phone]). The patient has been seen in conjunction with Dr. Blank who agrees with the assessment and plan of care. - Patient Problems (1) Encounter for induction of labor Current Visit: Yes Status: Acute (2) GDM (gestational diabetes mellitus) Current Visit: Yes Status: Acute (3) Term Current Visit: Yes Status: Acute
--- NOTE | 2019-11-08 15:26 | Discharge Summary ---
Providers - Providers Date of Admission: 11/04/19 11:00 Date of discharge: 11/08/19 Attending physician: WALLY SHARIF MD 11/07/19 11:01 Consult to Physician [CONS] Routine Comment: Consulting Provider: DIAZ SHEIKH Physician Instructions: Reason For Exam: heart murmur; Primary care physician: WALLY SHARIF MD Hospitalization Reason for admission: induction of labor Delivery: Episiotomy: none Laceration: 3rd degree Other procedures: none complications: none Discharge diagnosis: IUP at term delivered baby: female Condition at discharge: Good Disposition: DC-01 TO HOME OR SELFCARE Plan - Provider Discharge Summary Activity: routine, no sex for 6 weeks, no heavy lifting 4 weeks, no strenuous exercise Diet: routine Instructions: routine Additional instructions: [] Smoking cessation referral if applicable(refer to patient education folder for contact #) [] Refer to [facility] Booklet Call your doctor immediately for: * Fever > 100.5 * Heavy vaginal bleeding ( >1 pad per hour) * Severe persistent headache * Shortness of breath * Reddened, hot, painful area to leg or breast * Drainage or odor from incision. * Keep incision clean and dry at all times and follow doctor's instructions regarding bathing/showering - Follow up plan Follow up: WALLY SHARIF MD [Primary Care Provider] - 7 Days
[2019-11-08 16:35] VITALS: BP 121/80
== END 2019-11-08 21:00 | disposition home or self-care (01) | DRG 768 ==
LOC: TRG 09:50 → LD 09:51 → TRG 11:00 → LD 11:00 → OB 11-06 22:10
PROVIDERS: ADMIT Obstetrics & Gynecology; ATTEND Obstetrics & Gynecology
PROC: 10E0XZZ Delivery of Products of Conception, External Approach (ICD-10-PCS; principal; 2019-11-04)
PROC: 0DQR0ZZ Repair Anal Sphincter, Open Approach (ICD-10-PCS; 2019-11-04)
PROC: 10907ZC Drainage of Amniotic Fluid, Therapeutic from Products of Conception, Via Natural or Artificial Opening (ICD-10-PCS; 2019-11-04)
PROC: 3E0R3BZ Introduction of Anesthetic Agent into Spinal Canal, Percutaneous Approach (ICD-10-PCS; 2019-11-04)
PROC: 00HU33Z Insertion of Infusion Device into Spinal Canal, Percutaneous Approach (ICD-10-PCS; 2019-11-04)
DX: O24.429 Gestational diabetes mellitus in childbirth, unspecified control (principal); Z37.0 Single live birth; O99.42 Diseases of the circulatory system complicating childbirth; O70.20 Third degree perineal laceration during delivery, unspecified; O13.4 Gestational [pregnancy-induced] hypertension without significant proteinuria, complicating childbirth; O99.824 Streptococcus B carrier state complicating childbirth; O76 Abnormality in fetal heart rate and rhythm complicating labor and delivery; R01.1 Cardiac murmur, unspecified; O90.81 Anemia of the puerperium; D64.9 Anemia, unspecified; Z82.49 Family history of ischemic heart disease and other diseases of the circulatory system; Z3A.38 38 weeks gestation of pregnancy
CPT/HCPCS: 36415; 59200; 81001; 82565; 82962; 83615; 84443; 84450; 84460; 84550; 85014; 85018; 85027; 86850; 86900; 86901; 93306; G0378; A6250; J0290; J0595; J2590; J3010; J3490; J7120; U0003-CS